=== PATIENT | male | born 1990 | race Caucasian/White ===

== ENCOUNTER 2018-02-14 09:45 | Day surgery (SDC) | payer OTHER ==
--- NOTE | 2018-02-10 22:57 | EKG REPORT ---
SEVERITY:- OTHERWISE NORMAL ECG - SINUS BRADYCARDIA : Confirmed by: David Hernandez 10-Feb-2018 22:57:37
[~2018-02-14 09:45] MED LIST: BUPIVACAINE HCL 0.5 % INJ/PF 30 ML SDV ONE; CLINDAMYCIN 600 MG/D5W RTU 600 MG/50 ML RTUPB IV PRN; LACTATED RINGERS 1000 ML IV PRN; LIDOCAINE 0.5% INJ-PF (5 MG/ML) 50 ML SDV SUBCUT PRN; LIDOCAINE 1% INJ-PF (10 MG/ML) 30 ML SDV ONE
[2018-02-14] MEDS ORDERED: GLYCOPYRROLATE 1 MG/5 ML SYRINGE ONE (10:03)
[2018-02-14] MEDS ORDERED: SUCCINYLCHOLINE CHLORIDE INJ 200 MG/10 ML VIAL ONE (10:03)
[2018-02-14] MEDS ORDERED: ONDANSETRON HCL INJ/PF 4 MG/2 ML SDV ONE (10:03)
[2018-02-14] MEDS ORDERED: KETOROLAC TROMETHAMINE 60 MG/2 ML SDV ONE (10:03)
[2018-02-14] MEDS ORDERED: DEXAMETHASONE SOD PHOSPHATE INJ 4 MG/1 ML VIAL ONE (10:03)
[2018-02-14] MEDS ORDERED: FAMOTIDINE INJ/PF 20 MG/2 ML SDV IV ONE (11:25)
[2018-02-14] MEDS ORDERED: ALBUTEROL SULFATE 0.083% NEB 2.5 MG/3 ML AMPUL NEB ONE ×4 (11:42)
[2018-02-14] MEDS ORDERED: MIDAZOLAM 2 MG/2 ML INJ ONE (12:01)
[2018-02-14] MEDS ORDERED: PROPOFOL INJ 200 MG/20 ML VIAL IV ONE (12:02)
[2018-02-14] MEDS ORDERED: FENTANYL CITRATE INJ/PF 100 MCG/2 ML AMPUL ONE (12:02)
[2018-02-14] MEDS ORDERED: RINGERS SOLUTION,LACTATED 1,000 ML IV ONE (12:30)
[2018-02-14] MEDS ORDERED: DIPHENHYDRAMINE HCL 50 MG/ML VIAL IV PRN (12:35)
[2018-02-14] MEDS ORDERED: FENTANYL CITRATE INJ/PF 100 MCG/2 ML AMPUL IV PRN ×3 (12:35)
[2018-02-14] MEDS ORDERED: MEPERIDINE HCL/PF INJ 25 MG/1 ML DISP.SYRIN IV PRN (12:35)
[2018-02-14] MEDS ORDERED: OXYCODONE-ACETAMINOPHEN 5-325 MG TABLET PO PRN ×3 (12:35→15:06)
[2018-02-14] MEDS ORDERED: PROMETHAZINE HCL INJ 25 MG/1 ML VIAL IV PRN ×2 (12:35)
--- NOTE | 2018-02-14 15:05 | RADIOLOGY REPORT (SQ) ---
EXAM DESCRIPTION: NO CHG FLUORO; ELBOW RIGHT AP/LAT COMPLETED DATE/TIME: 02/14/2018 2:52 pm REASON FOR STUDY: RT ELBOW CUBITAL AND CAPSULAR RELEASE ASST WITH FLUORO IN OR COMPARISON: None. FLUOROSCOPY TIME: 0 minutes 3 Images saved to PACS LIMITATIONS: None. PROCEDURE: Right elbow cubital and capsular release. FINDINGS: 3 images were obtained from fluoro. IMPRESSION: Right elbow cubital in capsular release. Refer to operative note for further informatio n. COMMENT: PQRS 6045F: Fluoroscopy time of the procedure is documented in the report. TECHNICAL DOCUMENTATION: JOB ID: [id number] [employer]- All Rights Reserved Reading location - IP/workstation name: [email or web address]
--- NOTE | 2018-02-14 15:05 | RADIOLOGY REPORT (SQ) ---
EXAM DESCRIPTION: NO CHG FLUORO; ELBOW RIGHT AP/LAT COMPLETED DATE/TIME: 02/14/2018 2:52 pm REASON FOR STUDY: RT ELBOW CUBITAL AND CAPSULAR RELEASE ASST WITH FLUORO IN OR COMPARISON: None. FLUOROSCOPY TIME: 0 minutes 3 Images saved to PACS LIMITATIONS: None. PROCEDURE: Right elbow cubital and capsular release. FINDINGS: 3 images were obtained from fluoro. IMPRESSION: Right elbow cubital in capsular release. Refer to operative note for further informatio n. COMMENT: PQRS 6045F: Fluoroscopy time of the procedure is documented in the report. TECHNICAL DOCUMENTATION: JOB ID: [id number] [employer]- All Rights Reserved Reading location - IP/workstation name: [email or web address]
[2018-02-14] MEDS ORDERED: MORPHINE SULFATE 10 MG/ML INJ IV PRN (15:06)
[2018-02-14] MEDS ORDERED: ONDANSETRON HCL INJ/PF 4 MG/2 ML SDV IV PRN (15:06)
--- NOTE | 2018-02-14 15:06 | Operative Report ---
Operative Report DATE OF SURGERY: 02/14/18 PREOPERATIVE DIAGNOSIS: Right elbow cubital tunnel syndrome, olecranon impingement with elbow contracture, intra-articular loose body, status post radial head ORIF POSTOPERATIVE DIAGNOSIS: Same OPERATION: Right elbow cubital tunnel release with ulnar nerve transposition, anterior/posterior capsular release with debridement olecranon/olecranon fossa osteophytes with removal of intra-articular loose bodies SURGEON: CECI DOAN ANESTHESIA: GA COMPLICATIONS: None ESTIMATED BLOOD LOSS: Minimal PROCEDURE: Indication for above procedure: Pleasant 27-year-old male who sustained injury to his right elbow years ago. He underwent open reduction of the fixation of his radial head which according to the patient he recovered well from however over time he has developed increasing pain along the posterior aspect of his elbow along with numbness and tingling in his ring and small finger. Patient had CT scan confirming advanced degeneration of the elbow joint with loose bodies and impingement along the olecranon fossa. The patient I discussed treatment options including operative versus nonoperative intervention after discussing the risks and benefits of both joint decision was made to proceed with operative treatment. Procedure In Detail: Patient was seen and evaluated in the preoperative holding area. The RIGHT upper extremity was initialized and marked. Patient received 600 mg of IV clindamycin for bacterial prophylaxis. Patient was taken back to the operative room where transferred to the operative table and placed under general anesthesia. Once they were adequately anesthetized a surgical team debriefing was performed ensuring all instrumentation was available, the surgical procedure was discussed with possible concerns reviewed. The upper extremity was prepped with ChloraPrep and draped in a sterile fashion. A timeout was done identifying correct patient, procedure and extremity everyone in attendance agree with this and verbalized no concerns. A sterile tourniquet was placed, extremity was exsanguinated and tourniquet inflated to 250 mmHg Procedure In Detail: Patient was seen and evaluated in the preoperative holding area. The RIGHT upper extremity was initialized and marked. Patient received 2g of Ancef IV for bacterial prophylaxis. Patient was taken back to the operative room where transferred to the operative table and placed under general anesthesia. Once they were adequately anesthetized and a nonsterile tourniquet was placed on the upper extremity. A surgical team debriefing was performed ensuring all insoholtrumentation was available, the surgical procedure was discussed with possible concerns reviewed. The upper extremity was prepped with ChloraPrep and draped in a sterile fashion. A timeout was done identifying correct patient, procedure and extremity everyone in attendance agree with this and verbalized no concerns. The extremity was exsanguinated the tourniquet was inflated to 250 mmHg. A longitudinal skin incision was made centered over the cubital tunnel. Careful dissection was done through the overlying soft tissues any peripheral vasculature was carefully coagulated with bipolar cautery. The branches of the medial antebrachial cutaneous nerve were identified and protected throughout the entirety of the case. Once within the confines of the cubital tunnel the ulnar nerve was identified at the proximal aspect of the wound. At this level I carefully released a medial portion of the triceps and the medial intermuscular septum freeing the ulnar nerve proximally of any overlying soft tissue compression. A vessel loop was placed. The medial intramuscular septum was excised. I then continued to track the ulnar nerve distally releasing Wiggins's fascia. At the level just proximal to the FCU fascia there is significant compression of the nerve with swelling compression at the level of the medial epicondyle as it was draped over a medial osteophyte. At the level of the FCU aponeurosis between the 2 heads of the FCU muscle. The fascia was released once again relieving any external compression from the ulnar nerve distally past the level of the first motor branch and distally to ensure there is no remaining compression. During dissection of the nerve careful attention was directed at avoiding disruption of the ulnar nerve blood supply. To perform the transposition the nerve was further freed from overlying soft tissue distally within the FCU muscle bellies and proximally along the medial intermuscular septum. A section of the medial intermuscular septum was removed to avoid proximal compression or kinking of the nerve after transposition. A vessel loop was placed around the nerve and its posterior vasculature both of which were carefully transposed anteriorly. At this point I checked the nerve proximally and distally to confirm there was no compression with range of motion from full flexion to full extension. Once I ensured no compression of the nerve I carefully dissected the subcutaneous tissues anteriorly taking note to avoid any branches of the medial antebrachial cutaneous nerve. The posterior band of the collateral ligament and capsule was excised to expose the medial osteophytes. Via sharp dissection medial osteophytes and loose bodies were released and excised. I then elevated the triceps musculature sharply off the posterior humerus to expose the olecranon tip and olecranon fossa. Once exposed under direct visualization with the use of an osteotome the osteophyte from olecranon tip was excised. With the use of a rongeur and curette the osteophytes within the olecranon fossa were excised as well. There is no longer evidence of impingement of the olecranon within the olecranon fossa under direct visualization. Any peripheral veins were coagulated with bipolar cautery. The wound was copiously irrigated with normal saline. Any remaining medial intermuscular septum was elevated and excised from the humerus to expose the anterior capsule. Carefully maintaining dissection off the anterior humerus the capsule was released but not excised. Once adequate release the coronoid was identified. Large osteophyte noted on preoperative imaging was identified and carefully dissected sharply from the surrounding capsule and soft tissues and excised. The wound was then copiously irrigated with normal saline. The elbow was placed through range of motion no remaining loose bodies were appreciated. A total of 4 loose bodies were removed largest loose body being 2 cm x 1 cm others ranging between 5 mm and 1 cm. The tourniquet was then deflated and compression was held for 2 minutes. Any peripheral bleeding was controlled with bipolar cautery until the wound was dry. To perform a subcutaneous transposition a small subcutaneous flap of adipose tissue this was carefully secured to the medial epicondyle with a 3-0 Vicryl suture while a [place] was placed at the level of the ulnar nerve to ensure no external compression from my subcutaneous flap. Once this was complete the elbow was placed through flexion-extension there is no evidence of impingement proximally or distally. The wound was then irrigated with normal saline. Subcutaneous tissues were closed with interrupted 4-0 Monocryl. Skin was closed with interrupted horizontal mattress 3-0 nylon suture. 30 cc of 0.5% Marcaine without epinephrine was injected for postoperative pain control. Patient was placed in a posterior splint maintaining 60 of flexion. Sponge counts, instrument counts, needle counts counts were correct. Patient was then awoken from anesthesia. Transferred from the operating room table to the operating room stretcher. There was no intraoperative complications patient tolerated procedure well stable to PACU. Postoperative plan: Patient will follow-up in the office as scheduled which point we will proceed with wound check. He may begin gentle range of motion exercises but avoid any heavy lifting at her first postoperative appointment.
--- NOTE | 2018-02-14 15:08 | Discharge Summary ---
Discharge Summary (SDC) - Discharge Final Diagnosis: Right elbow cubital tunnel syndrome, ulnohumeral/radiocapitellar osteoarthritis Date of Surgery: 02/14/18 Discharge Date: 02/14/18 Condition: Good Treatment or Instructions: Schedule Follow Up w/ Dr. Kolton Pappas @ [facility] to be seen in 10-14 days or as scheduled [place]: [place]: [place]: Ice and elevate Keep splint clean/dry/intact. If your fingers become numb please unwrap the [place] wrap but leave the splint in place, if the sensation does not return within 30 minutes please return to the emergency department. May begin finger range of motion attempting to make full fist. Please use ibuprofen (Motrin or Advil) 600-800 mg every 8 hours as needed for pain or fever DO NOT TAKE w/ TORADOL may use once TORADOL complete. You may also use acetaminophen (Tylenol) 1000 mg every 4-6 hours as needed for pain or fever. Please be aware that many medications contain acetaminophen, do not exceed a total of 1000 mg of acetaminophen every 6 hours. If ibuprofen and acetaminophen are not sufficient for your pain you may take the Percocet/[place]. Please be aware that the Percocet/[place] does contain Tylenol. Stool softener of choice when on pain medication. Prescriptions: Ketorolac Tromethamine [Toradol 10 mg Tablet] 10 mg PO Q8HP PRN #10 tablet PRN Reason: Oxycodone HCl/Acetaminophen [Percocet 5-325 mg Tablet] 1 - 2 tab PO Q6 PRN #35 tablet PRN Reason: Discharge Diet: As Tolerated Respiratory Treatments at Home: Deep Breathing/Coughing Report the Following to Your Physician Immediately: Fever over 101 Degrees, Unusual Bleeding, Redness, Swelling, Warmth, Increased Soreness
[2018-02-14 17:23] VITALS: BP 124/69
== END 2018-02-14 17:15 | disposition home or self-care (01) ==
LOC: OROUT 09:45
PROVIDERS: ATTEND Orthopaedic Surgery
DX: G56.21 Lesion of ulnar nerve, right upper limb (principal); M24.021 Loose body in right elbow; M25.721 Osteophyte, right elbow; M24.521 Contracture, right elbow; F17.210 Nicotine dependence, cigarettes, uncomplicated; K21.9 Gastro-esophageal reflux disease without esophagitis; Z88.0 Allergy status to penicillin; Z79.899 Other long term (current) drug therapy
CPT/HCPCS: 64718; 24101; 93005; 73070; 93010; 94640; J2250; J3490 ×2; J1100; J1885; J3010; J0330; J2405; J2704; S0028; 01710